=== PATIENT | male | born 1965 | race Caucasian/White ===

== ENCOUNTER 2018-12-19 15:11 | Emergency (ER) | payer MEDICAID ==
[2018-12-19] MEDS: LIDOCAINE 1% (MDV) 20 ML INJ SC (16:30)
[2018-12-19] MEDS ORDERED: CEFAZOLIN 1 GM INJ IM (18:00)
[2018-12-19] MEDS: DIPHTH/TET/ACEL PERTUSS (ADULT) 0.5 ML VIAL IM* (19:28)
[2018-12-19] MEDS: CEPHALEXIN 500 MG CAP PO (19:28)
== END 2018-12-19 19:38 | disposition home or self-care (01) ==
LOC: FTE 15:11
DX: S61.314A Laceration without foreign body of right ring finger with damage to nail, initial encounter (principal); S61.312A Laceration without foreign body of right middle finger with damage to nail, initial encounter; S62.630B Displaced fracture of distal phalanx of right index finger, initial encounter for open fracture; W23.1XXA Caught, crushed, jammed, or pinched between stationary objects, initial encounter; Y92.9 Unspecified place or not applicable; Z23 Encounter for immunization
CPT/HCPCS: 12002; 73130-RT; 90471; 90715; 99283-25

== ENCOUNTER 2018-12-21 13:10 | Emergency (ER) | payer MEDICAID | END 2018-12-21 15:00 | disposition home or self-care (01) | LOC: FTE 13:10 | DX: Z48.01 Encounter for change or removal of surgical wound dressing (principal) | CPT/HCPCS: 99281; Z7502 ==

== ENCOUNTER 2018-12-24 12:38 | Emergency (ER) | payer MEDICAID | END 2018-12-25 12:53 | disposition home or self-care (01) | LOC: E/R 12-25 12:53 | DX: Z48.01 Encounter for change or removal of surgical wound dressing (principal) | CPT/HCPCS: 99281; Z7502 ==

== ENCOUNTER 2018-12-28 15:55 | Emergency (ER) | payer MEDICAID | END 2018-12-28 17:17 | disposition home or self-care (01) | LOC: E/R 15:55 | DX: S62.632A Displaced fracture of distal phalanx of right middle finger, initial encounter for closed fracture (principal); X58.XXXA Exposure to other specified factors, initial encounter; Y92.9 Unspecified place or not applicable | CPT/HCPCS: 99281 ==

== ENCOUNTER 2018-12-31 14:39 | Emergency (ER) | payer MEDICAID | END 2018-12-31 17:45 | disposition home or self-care (01) | LOC: FTE 14:39 | DX: Z48.02 Encounter for removal of sutures (principal) | CPT/HCPCS: 99281; Z7502 ==

== ENCOUNTER 2019-01-11 11:24 | Emergency (ER) | payer MEDICAID | END 2019-01-11 12:44 | disposition home or self-care (01) | LOC: FTE 12:44 | DX: Z48.01 Encounter for change or removal of surgical wound dressing (principal) | CPT/HCPCS: 99281 ==